=== PATIENT | male | born 1950 | race Caucasian/White ===

== ENCOUNTER 2020-10-20 10:33 | Emergency (ER) | payer OTHER, MEDICARE ==
[~2020-10-20 10:33] MED LIST: ACETAMINOPHEN500 M1 PO; CETIRIZINE HCL5 MG PO; CLONAZEPAM0.5 MG PO; COZAAR50 MG PO; FLOMAX0.4 MG PO; LAMICTAL100 MG PO; LIPITOR20 MG PO; NORVASC5 MG PO; PRESERVISION A1 EAC2 PO; PROSCAR5 MG PO; VENLAFAXINE HCL75 MG PO; VITAMIN D310 MCG PO
== END 2020-10-20 11:30 | disposition home or self-care (01) ==
LOC: FER 10:33
DX: S61.012A Laceration without foreign body of left thumb without damage to nail, initial encounter (principal); E11.9 Type 2 diabetes mellitus without complications; Z23 Encounter for immunization; W29.8XXA Contact with other powered hand tools and household machinery, initial encounter
CPT/HCPCS: 90471; 90715

== ENCOUNTER → 2021-11-08 | Day surgery (SDC) | payer MEDICARE ==
[~2021-11-08] VITALS: Ht 170.2 cm; Wt 89.3 kg
[~2021-11-08] MED LIST changes: +ASPIRIN EC81 MG PO
== END | disposition home or self-care (01) ==
LOC: FAS 06:23
DX: Z12.11 Encounter for screening for malignant neoplasm of colon (principal); D12.2 Benign neoplasm of ascending colon; K62.1 Rectal polyp; K57.30 Diverticulosis of large intestine without perforation or abscess without bleeding; K64.8 Other hemorrhoids; Z86.010 Personal history of colon polyps; Z79.82 Long term (current) use of aspirin
CPT/HCPCS: J2704; J7120